=== PATIENT | female | born 1980 | race Caucasian/White ===

== ENCOUNTER 2018-06-18 14:24 | Inpatient (IN) | payer MEDICAID, SELFPAY ==
[2018-06-18 14:45] VITALS: BMI 22.9
[2018-06-18 14:54] VITALS: BP 120/82; PULSE 73; RESP 16; TEMP 36.6; O2SAT 97
--- NOTE | 2018-06-18 15:02 | PCM.HP.STD ---
History of Present Illness The patient is a 37 year old F [] Past Medical History Allergies No Known Allergies Allergy (Verified 06/18/18 14:45) Home Medications: Ambulatory Orders Medication Instructions Recorded NK 06/18/18 Smoking Status: Never smoker - Physical Exam Vital Signs Temp Pulse Resp BP Pulse Ox 97.8 F 73 16 120/82 H 97 06/18/18 14:54 06/18/18 14:54 06/18/18 14:54 06/18/18 14:54 06/18/18 14:54 Oxygen Delivery Method Room Air Weight: 58.74 kg Body Mass Index (BMI) 22.9 Code Visit Inpatient E&M: 72216 Init Hosp L2
[2018-06-18 15:21] VITALS: BP 120/82; PULSE 73; RESP 16; TEMP 36.6
[2018-06-18] MEDS: Methocarbamol 750 MG Tablet PO (15:29)
[2018-06-18] MEDS: Acetaminophen 500 MG Tablet PO (15:29)
[2018-06-18] MEDS: Buprenorphine HCl 2 MG TAB.SUBL SL (15:29)
--- NOTE | 2018-06-18 16:09 | HP.PCM_ITS ---
<Denise Cedillo - Last Filed: 06/18/18 16:28> Problem List (1) Opioid withdrawal Status: Acute (2) Hepatitis C Status: Chronic History of Present Illness Date of Admission: 06/18/18 Chief Complaint: Opioid withdrawal. The patient is a 37 year old F who presents through [facility] program due to opioid withdrawal. She reports she last used heroin last evening. She currently uses 2 g/day via snorting. She has a history of IV drug use however denies recent IV drug use. She states her tox screen will also be positive for methamphetamine, crack and benzos although she does not routinely use these, they were offered to her by by her acquaintances yesterday and she reports she used them. She states she has used heroin for 2 years. She has been through detox in the past, most recently 2 months ago where she states she failed to complete outpatient follow-up. She reports she has plans to use Vivitrol upon discharge. She has a history of hepatitis C. Denies other chronic medical hi story. She currently complains of nasal congestion, anxiety, abdominal cramping. Past Medical History Past Medical History (Chronic Problems): Chronic Problems Hepatitis C (Chronic) Allergies No Known Allergies Allergy (Verified 06/18/18 14:45) Home Medications: Ambulatory Orders Medication Instructions Recorded NK 06/18/18 Surgical History: - - Tubal ligation. 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 - *Family History Maternal History Items: - - Denies known maternal medical history including cardiac history. Paternal History Items: Hypertension Review of Systems Constitutional: Reports: Chills. Denies: Fever, Weakness, Weight Change HEENT: Reports: Nasal Congestion. Denies: Head Aches, Sinus Drainage Cardiovascular: Denies: Chest Pain, Edema, Light Headedness, Palpitations, Syncope Respiratory: Denies: Cough, Shortness of breath at rest, Sputum production Gastrointestinal: Reports: - - Abdominal cramping. Denies: Abdominal Pain, Nausea, Vomiting Genitourinary: Denies: Dysuria Musculoskeletal: Denies: Joint Pain, Joint Tenderness Skin: Denies: Rash, Wounds Neurological: Denies: Numbness, Tingling, Focal weakness Psychiatric: Denies: Anxiety, Depression, Homicidal Ideations, Suicidal Ideations Hematologic/ Lymphatic: Denies: Easy Bruising, Easy Bleeding VTE Information - Inpt Only VTE Present on Admission: No VTE Mechan Device Prophylaxis: None Reason prophylaxis not ordered:: Treatment Not Indicated Patient Problems: Active and Suspected Problems Opioid withdrawal (Acute) - Physical Exam General: Alert, Oriented x3, Cooperative HEENT: Atraumatic, PERRLA, EOMI, Normocephalic Neck: Supple, No JVD, Negative Carotid Bruits Lungs: Clear to auscultation, Normal air movement Cardiovascular: Regular rate, Regular Rhythm, Normal S1, Normal S2, No murmurs Abdomen: Bowel Sounds Present, Soft, Non Tender, Non-Distended Extremities: No clubbing, No cyanosis, No edema, Capillary Refill Less than 3 Seconds Skin: No rashes, No breakdown Musculoskeletal: No Tenderness to Palpation of Joints or Extremities Neurological: Cranial nerves II-XII grossly intact, Neuro grossly intact Psych/Mental Status: Normal Affect, Appropriate Vital Signs Temp Pulse Resp BP Pulse Ox 97.8 F 73 16 120/82 H 97 06/18/18 15:21 06/18/18 15:21 06/18/18 15:21 06/18/18 15:21 06/18/18 14:54 Oxygen Delivery Method Room Air Weight: 129 lb 8 oz Body Mass Index (BMI) 22.9 Assessment/Plan All Active Problems Opioid withdrawal (Acute) 1. Opioid withdrawal, polysubstance abuse-medical stabilization per protocol. Obtain urine drug screen. Complete CMP, CBC. Further disposition per [facility]. Subutex taper, prn regimen for somatic complaints. 2. Chronic hepatitis C-outpatient follow-up following 6 months sobriety. DVT prophylaxis-not indicated, low risk. This patient was seen by LETTY Velasquez under the supervision of Dr. Hall. <Angie Hall - Last Filed: 06/18/18 16:35> Problem List (1) Opioid withdrawal Status: Acute (2) Hepatitis C Status: Chronic Qualifiers: Viral hepatitis chronicity: chronic History of Present Illness The patient is a 37 year old F [] Past Medical History Allergies No Known Allergies Allergy (Verified 06/18/18 14:45) - Physical Exam Vital Signs Temp Pulse Resp BP Pulse Ox 97.8 F 73 16 120/82 H 97 04/17/19 15:21 06/18/18 15:21 06/18/18 15:21 06/18/18 15:21 06/18/18 14:54 Oxygen Delivery Method Room Air Weight: 58.74 kg Body Mass Index (BMI) 22.9 Laboratory Tests Past 24 Hrs 06/18/18 06/18/18 15:52 15:52 WBC Pending RBC Pending Hgb Pending Hct Pending MCV Pending MCH Pending MCHC Pending RDW Pending RDW Differential Pending Plt Count Pending Neut % (Auto) Pending Absolute Neuts (auto) Pending Total Counted Pending Sodium Pending Potassium Pending Chloride Pending Carbon Dioxide Pending Anion Gap Pending BUN Pending Creatinine Pending Est GFR (MDRD) Af Amer Pending Est GFR (MDRD) Non-Af Pending BUN/Creatinine Ratio Pending Glucose Pending Calcium Pending Total Bilirubin Pending AST Pending ALT Pending Alkaline Phosphatase Pending Total Protein Pending Albumin Pending Assessment/Plan This patient was seen in conjunction with Denise Cedillo NP. I have independently interviewed and examined the patient and reviewed pertinent historical, laboratory, and other data. Please refer to her note for patient's presentation, findings, and recommendations. 37-year-old female with past medical history of chronic hepatitis C, polysubstance use disorder, IV/inhalation heroin user, uses about 2 g of heroine daily comes in for medical stabilization and [facility] protocol. This is the patient's third detox. Last detox was more than 6 months ago. She complains of symptoms of nausea without vomiting or diarrhea, hot and cold flashes, terminal discomfort, muscle aches, nasal congestion. She admits to using methamphetamine, crack and benzos 1 day prior to admission. She insists that she typically does not use these substances of abuse on a regular basis. She plans on following with [facility] after discharge. Vitals were reviewed -stable Physical Exam: Gen: Comfortable, not pale, not jaundiced, alert oriented x3 CVS:HS I +II, regular, no murmurs RESP: CTA GI: Bowel sounds present and normal, soft, nontender, no palpable organs EXT:No edema Labs pending at time ASSESSMENT: 1. Acute opioid withdrawal 2. Substance use disorder 3. Chronic hepatitis C Plan: We will continue on the [facility] protocol Needs outpatient follow-up for hepatitis C Code Visit Inpatient E&M: 32208 Init Hosp L2
[2018-06-18 16:40] LABS: Absolute Lymphocyte Count 2.28 X10^3/ul (0.83-4.51); Absolute Neutrophil Count 3.7 X10^3/uL (2.0-7.7); Basophil# 0.02 X10^3/uL; Basophil% 0.3 % (0-1); Eosinophil# 0.54 X10^3/uL; Eosinophils% 7.6 % (0-5); Hematocrit 39.2 % (37-47); Hemoglobin 13.1 g/dl (12.0-15.0); Lymphocyte # 2.28 X10^3/ul (4.0); Lymphocyte % 32.2 % (19-41); Mean Corp Hgb Conc 33.4 g/gl (32-36); Mean Corpuscular Hgb 31.1 pg (27.0-32.0); Mean Corpuscular Volume 93.1 fL (81-99); Mean Platelet Vol. 9.1 fl (6.2-12.0); Monocyte# 0.56 X10^3/uL; Monocyte% 7.9 % (0-10); Neutrophil # 3.68 X10^3/uL (2.7-7.7); Neutrophil % 51.9 % (47-70); Platelet Count 249 K/mm3 (150-450); RBC Distribution Width CV 12.8 % (11.6-14.6); RBC Distribution Width SD 43.3 fl (35.1-43.9); Red Blood Count 4.21 M/mm3 (4.2-5.4); White Blood Count 7.1 K/mm3 (4.4-11.0)
[2018-06-18 16:43] LABS: ALB/GLOB Ratio 0.7 RATIO (0.9-2.4); AST(SGOT) 22 U/L (15-37); Alanine Aminotransfer ALT/SGPT 28 U/L (13-56); Albumin, Serum 3.4 g/dL (3.2-5.0); Alkaline Phosphatase 108 U/L (45-117); Anion Gap 4 (5-15); BUN 15 mg/dL (7-18); Calcium,Total 8.9 mg/dL (8.5-10.1); Chloride 106 mmol/L (98-107); Creatinine, Serum 0.65 mg/dL (0.55-1.02); EST Glomerular Filtration Rate 107 mL/min (>60); Est Glom Filt Rate - Afr Amer 130 mL/min (>60); Estimated Creatinine Clearance 96.12 ml/min; Globulin 4.6 g/dL (2.2-4.2); Glucose 65 mg/dL (74-106); Sodium Level 139 mmol/L (136-145)
[2018-06-18 16:45] LABS: POSITIVE COUNT NO; POSITIVE DIFFERENTIAL NO; POSITIVE MORPHOLOGY NO
[2018-06-18] MEDS: Ondansetron ODT 4 MG Tablet PO (19:48)
[2018-06-18 19:52] LABS: Amphetamine Urine VISTA NEGATIVE (<1000 ng/mL); Barbiturate Urine VISTA NEGATIVE (< 200 ng/mL); Benzodiazepine Urine VISTA NEGATIVE (< 200 ng/mL); Cocaine Urine VISTA POSITIVE (< 300 ng/mL); Ecstacy Urine VISTA NEGATIVE (< 500 ng/mL); Methadone Urine VISTA NEGATIVE (< 300 ng/mL); PCP Urine VISTA NEGATIVE (< 25 ng/mL); THC Urine VISTA POSITIVE (< 50 ng/mL); Vista UDS pH Range 5
[2018-06-18] MEDS: cloNIDine HCl 0.1 MG Tablet PO (19:52)
[2018-06-18] MEDS: traZODone 50 MG Tablet PO (20:29)
[2018-06-18] MEDS: Dicyclomine 10 MG Capsule 20 MG PO (20:29)
[2018-06-18 22:03] VITALS: BP 123/77; PULSE 81; RESP 14; TEMP 37.3
[2018-06-19] MEDS: Buprenorphine HCl 2 MG TAB.SUBL SL ×3 (00:02→15:00)
[2018-06-19 01:58] VITALS: BP 110/69; PULSE 75; RESP 14; TEMP 37.3
[2018-06-19] MEDS: Ondansetron ODT 4 MG Tablet PO ×3 (02:38→18:40)
[2018-06-19 05:43] VITALS: BP 120/69; PULSE 83; RESP 14; TEMP 37.1
[2018-06-19] MEDS: cloNIDine HCl 0.1 MG Tablet PO ×4 (05:45→21:57)
[2018-06-19 08:45] VITALS: BP 108/75; PULSE 82; RESP 16; TEMP 36.4; O2SAT 99
--- NOTE | 2018-06-19 08:53 | PCM.PROGNOTE ---
Patient Problems: Active and Suspected Problems Opioid withdrawal (Acute) Subjective: Chief complaint: Follow-up after admission for acute opiate withdrawal. Patient seen and examined. Initially, she was sleepy and not interested in talking to me and doing physical examination. I explained to the patient that I have to see her now because I have more patients to see. Initially, she requested me to come back to talk to her. According to nursing staff, patient refused to have her blood pressure checked before giving her medications. I went back to the patient's room and I explained to her that in order to give her withdrawal medications, we have to check her blood pressure and she agreed. She is still symptomatic, restless although she was trying to sleep. Her vital signs are stable. - Physical Exam General: Alert, Oriented x3, Cooperative, No apparent distress HEENT: Atraumatic, PERRLA, EOMI, Normocephalic Oral: Moist Mucosa, No Gingival or Mucosal Lesions/ Ulcerations Neck: Supple, No JVD, Negative Carotid Bruits, Trachea Midline, Thyroid Normal Size and Texture Lungs: Clear to auscultation, Normal air movement, No rhonchi, No wheeze, No rales Cardiovascular: Regular rate, Regular Rhythm, Normal S1, Normal S2, PMI Normal Abdomen: Bowel Sounds Present, Soft, Non Tender, Non-Distended, No Hepato-splenomegaly Extremities: No clubbing, No cyanosis, No edema Skin: No rashes, No breakdown Neurological: Cranial nerves II-XII grossly intact, Motor Exam 5/5 strength throughout Psych/Mental Status: Anxious Vital Signs Temp Pulse Resp BP Pulse Ox 97.5 F L 82 16 108/75 99 06/19/18 08:45 06/19/18 08:45 06/19/18 08:45 06/19/18 08:45 06/19/18 08:45 Oxygen Delivery Method Room Air Weight: 129 lb 8 oz Body Mass Index (BMI) 22.9 Intake and Output for Last 24 Hours 06/17/18 06/18/18 06/19/18 23:59 23:59 23:59 Intake Total 100 / 100 500 / 500 Balance 100 / 100 500 / 500 Laboratory Tests Past 24 Hrs 06/18/18 06/18/18 06/18/18 15:00 15:52 15:52 WBC 7.1 RBC 4.21 Hgb 13.1 Hct 39.2 MCV 93.1 MCH 31.1 MCHC 33.4 RDW 12.8 RDW Differential 43.3 Plt Count 249 MPV 9.1 Immature Gran % (Auto) 0.100 Neut % (Auto) 51.9 Lymph % (Auto) 32.2 [place] % (Auto) 7.9 Eos % (Auto) 7.6 H Baso % (Auto) 0.3 Absolute Neuts (auto) 3.7 Absolute Lymphs (auto) 2.28 Total Counted Not Reportable Sodium 139 Potassium 4.0 Chloride 106 Carbon Dioxide 29.0 Anion Gap 4 L BUN 15 Creatinine 0.65 Estim Creat Clear Calc 96.12 Est GFR (MDRD) Af Amer 130 Est GFR (MDRD) Non-Af 107 BUN/Creatinine Ratio 23.0 H Glucose 65 L Calcium 8.9 Total Bilirubin 0.10 L AST 22 ALT 28 Alkaline Phosphatase 108 Total Protein 8.0 Albumin 3.4 Globulin 4.6 H Albumin/Globulin Ratio 0.7 L Urine Opiates Screen POSITIVE H Urine Methadone Screen NEGATIVE Ur Barbiturates Screen NEGATIVE Ur Phencyclidine Scrn NEGATIVE Ur Amphetamines Screen NEGATIVE U Methamphetamin-MDMA NEGATIVE U Benzodiazepines Scrn NEGATIVE Urine Cocaine Screen POSITIVE H U Cannabinoids Screen POSITIVE H Ur Drug Screen Comment Medical Necessity - Tobacco Use Smoking Status: Never smoker Tobacco Use: Non-smoker Assessment/Plan All Active Problems Opioid withdrawal (Acute) This is a 37 years old female patient presented to the [facility] office requesting admission for acute opioid withdrawal for medical stabilization. #1 acute opiate withdrawal/ polysubstance abuse: Started on [facility] protocol with tapering course of Subutex, as needed Catapres, Bentyl, Motrin, methocarbamol, Zofran, Mirapex and trazodone. Her vital signs are stable. Her routine blood work was unremarkable. LFT was normal. Urine drug screen was positive for opioids, cocaine and cannabinoids. Today, she is still contracted, restless, anxious. Plan to continue same treatment. #2 chronic hepatitis C: Recommend outpatient follow-up. #3 DVT prophylaxis: Low-risk patient, no prophylaxis indicated. This note was generated with [employer] software. It may contain incorrect words, spelling, and punctuation that were not noted in checking the note before signing. Code Visit Inpatient E&M: 93308 Subs Hosp L2
[2018-06-19 11:16] VITALS: BP 110/64; PULSE 73; RESP 16; TEMP 36.5
[2018-06-19] MEDS: Ibuprofen 600 MG Tablet PO (14:46)
--- NOTE | 2018-06-19 14:53 | NURSING ---
Patient has appointment at [facility] on 06/23/2018 for MAT appointment / counseling.
--- NOTE | 2018-06-19 14:56 | CHAPLAIN ---
patient is awake but said that she is not feeling good enough to talk with anyone at this point; pt would be willing for a future visit if she is feeling better
[2018-06-19 18:42] VITALS: BP 96/56; PULSE 73; RESP 16; TEMP 36.3; O2SAT 97
[2018-06-19 21:47] VITALS: BP 109/66; PULSE 68; RESP 16; TEMP 37
[2018-06-19] MEDS: traZODone 50 MG Tablet PO (21:57)
[2018-06-20] MEDS: Buprenorphine HCl 2 MG TAB.SUBL SL ×3 (00:07→20:43)
[2018-06-20 04:53] VITALS: BP 106/69; PULSE 62; RESP 16; TEMP 36.9
[2018-06-20] MEDS: Ibuprofen 600 MG Tablet PO ×3 (04:56→22:12)
[2018-06-20] MEDS: Ondansetron ODT 4 MG Tablet PO ×2 (04:57→12:33)
--- NOTE | 2018-06-20 08:23 | PN_ITS ---
Patient Problems: Active and Suspected Problems Opioid withdrawal (Acute) Subjective: Follow-up after admission for acute opioid withdrawal. Patient seen and examined. No acute events overnight. This morning, she is feeling a little bit better, more awake, less anxious. She states that she was able to sleep last night. Still having some anxiety and restlessness. Mild abdominal cramps, no diarrhea. Vital signs are stable. - Physical Exam General: Alert, Oriented x3, Cooperative, No apparent distress HEENT: Atraumatic, PERRLA, EOMI, Normocephalic Oral: Moist Mucosa, No Gingival or Mucosal Lesions/ Ulcerations Neck: Supple, No JVD, Negative Carotid Bruits, Trachea Midline, Thyroid Normal Size and Texture Lungs: Clear to auscultation, Normal air movement, No rhonchi, No wheeze, No rales Cardiovascular: Regular rate, Regular Rhythm, Normal S1, Normal S2, PMI Normal Abdomen: Bowel Sounds Present, Soft, Non Tender, Non-Distended, No Hepato- splenomegaly Extremities: No clubbing, No cyanosis, No edema Skin: No rashes, No breakdown Lymphatic: No Cervical, Supraclavicular, or Inguinal Adenopathy Neurological: Cranial nerves II-XII grossly intact, Neuro grossly intact Psych/Mental Status: Normal Affect, Appropriate, Alert and oriented to time, place, person, mood and affect Vital Signs Temp Pulse Resp BP Pulse Ox 98.4 F 62 16 106/69 97 06/20/18 04:53 06/20/18 04:53 06/20/18 04:53 06/20/18 04:53 06/19/18 18:42 Oxygen Delivery Method Room Air Weight: 129 lb 7.992 oz Body Mass Index (BMI) 22.9 Intake and Output for Last 24 Hours 06/18/18 06/19/18 06/20/18 23:59 23:59 23:59 Intake Total 100 / 100 650 / 650 800 / 800 Output Total 200 / 200 Balance 100 / 100 650 / 650 600 / 600 Medical Necessity - Tobacco Use Smoking Status: Never smoker Tobacco Use: Non-smoker Assessment/Plan All Active Problems Opioid withdrawal (Acute) This is a 37 years old female patient presented to the [facility] office requesting admission for acute opioid withdrawal for medical stabilization. #1 acute opiate withdrawal/ polysubstance abuse: She is on [facility] protocol with tapering course of Subutex, as needed Catapres, Bentyl, Motrin, methocarbamol, Zofran, Mirapex and trazodone. Her vital signs are stable. Symptoms started to improve, feeling slightly better. Her routine blood work was unremarkable. LFT was normal. Urine drug screen was positive for opioids, cocaine and cannabinoids. Plan to continue same treatment. #2 chronic hepatitis C: Recommend outpatient follow-up. #3 DVT prophylaxis: Low-risk patient, no prophylaxis indicated. This note was generated with [employer] dictation software. It may contain incorrect words, spelling, and punctuation that were not noted in checking the note before signing. Code Visit Inpatient E&M: 42564 Subs Hosp L2
[2018-06-20 08:25] VITALS: BP 116/75; PULSE 66; RESP 18; TEMP 36.6
--- NOTE | 2018-06-20 08:30 | NURSING ---
Pt refusing Ensure. This nurse brought in Subutex, Mirapex, Bentyl, Catapres, and Methocarbamol. pt refused everything except subutex. I don't need any of that. Pt very short with answers and irritated, sounds annoyed when asking her questions. Do you have to take my Blood pressure?. When this nurse asked why she did not want BP taken she stated, Because I'm tired. Will continue to monitor.
[2018-06-20 14:38] VITALS: BP 105/70; PULSE 70; RESP 16; TEMP 36.7
[2018-06-20] MEDS: cloNIDine HCl 0.1 MG Tablet PO (14:39)
--- NOTE | 2018-06-20 16:58 | NURSING ---
pt states she wants something for anxiety. This nurse looked on EMAR, nothing ordered. Informed Crystal. I need something because my anxiety is really bad. Texted Dr. Huizarelfah via [id number].
[2018-06-20] MEDS: ALPRAZolam 0.5 MG Tablet PO (17:32)
[2018-06-20 20:37] VITALS: BP 97/58; PULSE 65; RESP 16; TEMP 36.3
[2018-06-20] MEDS: traZODone 50 MG Tablet PO (22:12)
[2018-06-21 02:09] VITALS: BP 107/69; PULSE 76; RESP 16; TEMP 36.3
[2018-06-21 04:18] VITALS: BP 101/66; PULSE 68
[2018-06-21] MEDS: cloNIDine HCl 0.1 MG Tablet PO (04:24)
[2018-06-21] MEDS: Ondansetron ODT 4 MG Tablet PO ×2 (04:24→10:33)
[2018-06-21] MEDS: Ibuprofen 600 MG Tablet PO (06:17)
--- NOTE | 2018-06-21 08:43 | DCINST_ITS ---
- Discharge Diagnoses Current Active Problems: Current Active and Chronic Problems Opioid withdrawal (Acute) Hepatitis C (Chronic) You will use the following diet at home:: Regular Your food should be the consistency of: Regular Discharge Activity: Return to Normal Activity Weight Bearing Status: Full weight bearing Call your doctor if you observe: Fever of 101 or Higher, Shortness of breath, Dizziness, Fainting spells, Chest pain, Increased palpitations (irregular heartbeat), Uncontrolled pain Additional Instructions: Please follow-up with the [facility] program. Allergies/Adverse Reactions: Allergies No Known Allergies Allergy (Verified 06/18/18 14:45) Medications to take at Discharge Zolpidem Tartrate [Ambien (Generic)] 5 mg PO QHS PRN PRN #30 tab 06/21/18 The following prescriptions were given: Zolpidem Tartrate [Ambien (Generic)] 5 mg PO QHS PRN PRN #30 tab PRN Reason: Insomnia Primary Care Physician: Care Physician,No Primary [Primary Care Provider] - Please follow up with your Primary Care Physician in: 2-4 WEEKS. Test Results: Test results from this visit will be discussed in further detail at your follow- up appointment, if applicable.
[2018-06-21] MEDS: Buprenorphine HCl 2 MG TAB.SUBL SL (08:51)
--- NOTE | 2018-06-21 12:15 | DS.PCM_ITS ---
Discharge Date and Diagnosis Date of Admission: 06/18/18 Date of Discharge: 06/21/18 - Primary Discharge Diagnosis Active and Suspected Problems Acute opioid withdrawal admitted for medical stabilization (Acute) - Secondary Discharge Diagnosis Chronic Problems Hepatitis C (Chronic) Hospital Course and Treatment Operations: None Procedures: None Summary of Care Provided: Patient seen and examined on the day of discharge and appeared to be stable to be discharged home. Her symptoms improved. Her vital signs remained stable. The patient is a 37 year old F presented to the [facility] office requesting admission for acute opioid withdrawal for medical stabilization. Patient was admitted, started on [facility] protocol with tapering course of Subutex, as needed Catapres, Bentyl, Motrin, methocarbamol, Zofran, Mirapex and trazodone. Her routine blood work was unremarkable. LFT was normal. Urine drug screen was positive for opioids, cocaine and cannabinoids. Her vital signs remained stable throughout admission. With the above-mentioned treatment, patient symptoms improved and she did well. Patient discharged home in a stable medical condition, she was given prescription for Ambien as needed for insomnia, recommended follow-up with [facility] program as well as follow-up with PCP in 2-4 weeks. - Physical Exam General: Alert, Oriented x3, Cooperative, No apparent distress HEENT: Atraumatic, PERRLA, EOMI, Normocephalic Oral: Moist Mucosa, No Gingival or Mucosal Lesions/ Ulcerations Neck: Supple, No JVD, Negative Carotid Bruits, Trachea Midline, Thyroid Normal Size and Texture Lungs: Clear to auscultation, Normal air movement, No rhonchi, No wheeze, No rales Cardiovascular: Regular rate, Regular Rhythm, Normal S1, Normal S2, PMI Normal Abdomen: Bowel Sounds Present, Soft, Non Tender, Non-Distended, No Hepato- splenomegaly Extremities: No clubbing, No cyanosis, No edema Skin: No rashes, No breakdown Lymphatic: No Cervical, Supraclavicular, or Inguinal Adenopathy Neurological: Cranial nerves II-XII grossly intact, Neuro grossly intact Psych/Mental Status: Normal Affect, Appropriate Vital Signs Temp Pulse Resp BP Pulse Ox 97.4 F L 68 16 101/66 97 06/21/18 02:09 06/21/18 04:18 06/21/18 02:09 06/21/18 04:18 06/19/18 18:42 Oxygen Delivery Method Room Air Weight: 129 lb 7.992 oz Body Mass Index (BMI) 22.9 Intake and Output for Last 24 Hours 06/19/18 06/20/18 06/21/18 23:59 23:59 23:59 Intake Total 650 / 650 1640 / 1640 820 / 820 Output Total 200 / 200 Balance 650 / 650 1440 / 1440 820 / 820 Discharge Activity: Return to Normal Activity Weight Bearing Status: Full weight bearing Call your doctor if you observe: Fever of 101 or Higher, Shortness of breath, Dizziness, Fainting spells, Chest pain, Increased palpitations (irregular heartbeat), Uncontrolled pain Home Medications: Medications to take at Discharge Zolpidem Tartrate [Ambien (Generic)] 5 mg PO QHS PRN PRN #30 tab 06/21/18 Following Prescrptions Were Given to Patient: Zolpidem Tartrate [Ambien (Generic)] 5 mg PO QHS PRN PRN #30 tab PRN Reason: Insomnia Primary Care Physician: Care Physician,No Primary [Primary Care Provider] - Please follow up with your Primary Care Physician in: 2-4 WEEKS. Disposition: Home Minutes spent on discharge:: 26 Patient Condition:: Stable Medical Necessity - Tobacco Use Smoking Status: Never smoker Tobacco Use: Non-smoker Meaningful Use Info Meaningful Use Diagnoses (Choose all that apply): None applicable Code Visit Inpatient E&M: 21944 Disch Hosp
== END 2018-06-21 11:50 | disposition home or self-care (01) | DRG 773 ==
PROVIDERS: Admitting Provider Internal Medicine; Referring Provider Internal Medicine; Visit Provider Hospitalist
DX: F11.23 Opioid dependence with withdrawal (principal); B18.2 Chronic viral hepatitis C
CPT/HCPCS: 36415; 80053; 80307; 85025; 97802